=== PATIENT | male | born 1990 | race Caucasian/White ===

== ENCOUNTER → 2016-06-18 | Outpatient (CLI) | payer OTHER | END | disposition home or self-care (01) | LOC: LAB 16:28 | PROVIDERS: ATTEND Nurse Practitioner | DX: S21.212A Laceration without foreign body of left back wall of thorax without penetration into thoracic cavity, initial encounter (principal) | CPT/HCPCS: 36415; 86703; 86706; 86708; 86709; 86803; 87340 ==